=== PATIENT | male | born 1950 | race Caucasian/White ===

== ENCOUNTER 2019-04-08 21:40 | Observation (INO) | payer MEDICARE, BC, SELFPAY ==
[2019-04-08 21:48] VITALS: BP 142/79; PULSE 78; RESP 14; TEMP 37.1; O2SAT 99
--- NOTE | 2019-04-08 21:53 | ED.GENADUL_ITS ---
Discharge Plan Disposition Patient Disposition: [facility] INPATIENT Condition: Serious Discharge Details Chief Complaint: PsychEval Clinical Impression: Catatonic schizophrenia Admit Date/Time: 04/09/19 12:50 Admit Provider: Chas Aviles Attending Provider: Chas Aviles Primary Care Provider: Michelle Corral ED Provider: Liam Leyva Discharge Data Discharge Date/Time-TO BE ENTERED AT DEPARTURE: 04/09/19 13:16 Medical Decision Making <Ishaan Macdonald MD - Last Filed: 05/05/19 23:35> 22:00 -- 68-year-old male with history of schizophrenia, noncompliant with antipsychotic medication, with escalating delusional thoughts and paranoia since discharge from inpatient psychiatric treatment facility in February, now in catatonic state. Suspect exacerbation of schizophrenia and acute psychosis. Patient unable to consent to inpatient treatment. Plan to check screening labs. I will consult mental health crisis screener for involuntary admission. --Patient evaluated by crisis screener and agrees with need for involuntary admission. --Labs reviewed and nondiagnostic. UDS pending. Patient has been medically screened and no acute life-threatening medical condition identified. Patient deemed medically stable for transfer to psychiatric treatment facility. Awaiting QP evaluation. I had huddle with care care management and nursing regarding safety plan. 2:00 -- EE paperwork complete. Awaiting bed availability. -- Patient was wandering around ED. He was redirected back to room. CPSO initiated to monitor patient. 7:00 --patient reassessed. He is remained stable overnight, sleeping comfortably. Plan for mental health to continue to assist in involuntary placement this morning. <Liam Leyva DO - Last Filed: 04/10/19 09:19> Case was signed out to me by my colleague Dr. Ishaan Macdonald. We are pending placement options for the patient. During the patient's stay he remained notably stable, however he eventually got to the point where he was discontent with staying in his room, continually got up, ambulated around the department, and went into other patient's rooms. He was redirectable with significant assistance by multiple medical staff personnel. He was not aggressive or confrontational, just challenging secondary to his catatonic state. We did contact the nursing supervisor finish end Danielle, we discussed the best area for the patient. Currently all mental health facilities have refused transfer, and have not accepted the patient. During the meantime it is felt that the best place for the patient would be [facility] in the mental health transition beds. I contacted the hospitalist , he agrees with the assessment and plan. I have extensively reviewed the treatment plan with the patient. I have addressed all patient concerns at this time. I have also discussed the plan with the admitting physician and they agree with the current assessment and plan and have agreed to assume responsibility for the patient. All parties demonstrate verbal understanding and agreement with our assessment and plan at this time. HPI <Ishaan Macdonald MD - Last Filed: 05/05/19 23:35> General Mode of arrival: EMS . Date/Time Provider Initiated Documentation: 04/08/19 21:52 . Limitations to Documentation: altered mental status . Information obtained by: family . HPI Narrative: 68-year-old male with history of schizophrenia, here with EMS after being found by family in a barn. 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 History and review of systems limited secondary to altered mental status. Brother is here with the patient and notes that patient has not been taking his antipsychotics since being discharged from inpatient psychiatric treatment in February. Brother notes persistent and worsening paranoia, delusional thought, intermittent catatonic behavior. Symptoms severe recently. Brother notes that he has not expressed suicidality but has expressed that he feels like he is going to and that people are out to get him. Related Data Home Medications Medication Instructions Recorded Confirmed escitalopram oxalate [Lexapro] 20 mg PO DAILY 04/09/19 04/09/19 quetiapine [Seroquel] 400 mg PO HS 04/09/19 04/09/19 Allergies Allergy/AdvReac Type Severity Reaction Status Date / Time No Known Allergies Allergy Unverified 04/09/19 14:01 Review of Systems <Ishaan Macdonald MD - Last Filed: 05/05/19 23:35> Review of Systems ROS Unobtainable: Unobtainable due to mental status PFSH <Ishaan Macdonald MD - Last Filed: 05/05/19 23:35> Social History Smoking/Tobacco Use Status: Unknown Exam <Ishaan Macdonald MD - Last Filed: 05/05/19 23:35> Const General: no acute distress HENMT Head: normocephalic and atraumatic Mouth: moist mucous membranes Eyes Conjunctivae: normal conjunctivae Neck Neck: trachea midline and supple Resp Auscultation: clear to auscultation bilaterally, no rales, no rhonchi and no wheezes Cardio Jugular venous pressure: no JVD Rate: regular rate and not tachycardic Rhythm: regular rhythm GI Palpation: soft, not firm, no guarding, no masses, not rigid and nontender Neuro General: alert and awake Extrem General: no edema Psych Appearance: grossly normal Speech and Movement: catatonic Affect: blunted Attitude: avoids eye contact and refuses to answer Sign Out <Ishaan Macdonald MD - Last Filed: 05/05/19 23:35> Sign Out Data: Sign Out Comment: Awaiting involuntary placement for inpatient psychiatric treatment for acute psychosis - schizophrenia with medication noncompliance and now catatonic state Last updated by Ishaan Macdonald MD at 04/09/19 07:31
[2019-04-08 22:25] LABS: Abs Immature Grans 0.01 k/cumm (0.0-0.09); Absolute Basophil Count 0.01 k/cumm (0.0-0.2); Absolute Eosinophil Count 0.04 k/cumm (0.0-0.7); Absolute Lymphocyte Count 0.88 k/cumm (1.2-3.4); Absolute Monocyte Count 0.54 k/cumm (0.11-0.7); Absolute Neutrophil Count 4.71 k/cumm (1.2-6.7); Basophils % 0.2; Eosinophils % 0.6; HCT 38.1 % (40.0-50.0); HGB 12.9 g/dL (13.5-17.5); Immature Grans % 0.2; Lymphocytes % 14.2; Mean Corp. HGB Concentration 33.9 g/dL (32.0-36.0); Mean Corpuscular Hemoglobin 28.5 pg (27.0-33.0); Mean Corpuscular Volume 84.3 fL (80-95); Mean Platelet Volume 8.8 fL (8.0-11.0); Monocytes % 8.7; Neutrophils % 76.1; Platelet Count 216 x1000/uL (130-400); RBC 4.52 m/cumm (4.50-6.00); RBC Distribution Width 13.7 % (11.8-14.1); White Blood Cell Count 6.19 k/cumm (4.4-10.8)
[2019-04-08 22:29] LABS: ALT 29 U/L (16-63); AST 21 U/L (15-37); Albumin 3.7 g/dL (3.4-5.0); Alkaline Phosphatase 64 U/L (46-116); Anion Gap 9.5 mmol/L (3-11); BUN 22 mg/dL (7-18); CO2 24.5 mmol/L (21.0-32.0); CREATININE 1.16 mg/dL (0.70-1.30); Calcium 8.5 mg/dL (8.5-10.1); Chloride 109 mmol/L (98-107); Glucose 113 mg/dL (70-100); Potassium 3.9 mmol/L (3.5-5.1); Sodium 143 mmol/L (136-145); Total Protein 7.2 g/dL (6.4-8.2)
[2019-04-08 22:46] LABS: ETHANOL BLOOD < 3.0 mg/dL (<3)
[2019-04-08 22:51] LABS: Acetaminophen < 2 ug/mL (10-30)
[2019-04-08 22:52] LABS: Salicylate < 2.8 mg/dL (2.8-20.0)
--- NOTE | 2019-04-09 00:33 | PDOC.MHCN_ITS ---
Date of service: 04/08/19 Time of Service: 22:55 Mental Health Crisis Note Presenting Issue How did you arrive at the ED and why did you come: Patient arrived at the ED by ambulance, when state police were contacted that patient had walked into a farm house in [place]. Precipitating Factors Patient would not look at or speak to emergency clinician. Patient presents catatonic. Disposition EYE CONTACT: none APPETITE: Patients brother stated that Raul had not eaten anything today, soup was brought up to him but it was unclear if he ate the soup. SLEEP(trouble falling/staying asleep: Patients brother stated that Raul has been having trouble sleeping and has not slept lately. Plan Patient will stay at [facility] on EE status while his referral is being processed at [facility]- patient had a recent stay at [facility] and they are aware of his current state. Signature Clinician's Name/Title: Shyam Vallecillo Emergency clinician
--- NOTE | 2019-04-09 00:37 | CMSP_ITS ---
Care Management Safety Plan Per Dr. Macdonald: 68-year-old male with history of schizophrenia, noncompliant with antipsychotics medication, with escalating delusional thoughts and paranoia since discharge from inpatient psychiatric treatment facility in February, now in catatonic state. Suspect exacerbation of schizophrenia and acute psychosis. P atient unable to consent to inpatient treatment. Patient has been medically cleared and screener notified, though unable to be assessed due to catatonia. If screener deems patient meets criteria for psychiatric stabilization CM will facilitate interdepartmental huddle with [facility] screener for safety planning considerations and meet with patient to review [facility] policy and safety plan, establish individual wishes for treatment and maintain patient rights. In the interim; please note safety plan below to guide patient care while awaiting further assessment in the ED. SAFETY PLAN: 1. Will remain on precautions and in patient scrubs at this time. 2. Will remain in room under direct supervision of [facility] staff at this provided by MICHAEL, CLOTHING PATTERN PREPARER stile ripsaw operator. 3. May have paper cups, plates, finger foods as well as a cardboard spoon with which to eat meals. 4. Follow [facility] Management of the Admitted Behavioral Health Patient policy. 5. Comfort bath system only. 6. No personal belongings 7. Visitors limited to family at this time. 8. Phone contact limited to family and legal calls at this time. 9. Due to interim status, if patient wishes to leave [facility], the [facility] bible worker must be contacted to re-evaluate patient prior to patient exiting the building. If deemed appropriate for inpatient psychiatric care, safety plan will be established with patient, and care team, to adhere to patient goals, identify restrictions based on behavioral status, address nutrition, and determine allowed personal belongings, tools for hygiene and personal care. As well plan will determine level of activity including ambulation, level of supervision, visitors, and determine privileges based on level of acuity, behaviors and level of engagement by patient.
[2019-04-09 03:53] LABS: *AMPHETAMINES SCREEN URINE Negative (Negative); *BARBITURATES SCREEN URINE Negative (Negative); *BENZODIAZEPINES SCREEN URINE Negative (Negative); Cannabinoids THC Negative (Negative); Cocaine Screen,Urine Negative (Negative); METHADONE URINE SCREEN Negative (Negative); OPIATES URINE SCREEN Negative (Negative)
[2019-04-09 03:56] LABS: Tricyclic Antidepressants Negative (Negative)
--- NOTE | 2019-04-09 11:41 | CMPROGNOTE_ITS ---
Care Management Progress Note CM attempted to speak with Dr. Macdonald 04/09/19@1230. Stephany of ED reported he was currently on the phone with [facility]. CM requested Stephany notify Dr. Macdonald that Dr. Ambrocio previous recommendations for patients diagnosed with schizophrenia and found to be catatonic is to order IV or IM Ativan protocol for catatonia. CM consulted with Dr. Ambrocio 04/09/19@3492 regarding possible consult for catatonia. Dr. Ambrocio reported ativan protocol would be appropriate if deemed classic catatonia by ED MD and reported she would be open to the consult request if so utilized by the ED MD. CM discussed process of Psychiatrist consult with Dr. Leyva at 0940 and provided contact information for Dr. Ambrocio. CM reviewed previous catatonic recommendations and advocated for this course of action as previously, Dr. Ambrocio advised timing is of the essence in regard to catatonia management. CM observed medication order entered at 1130 for PO Ativan 1mg. CM connected with Dr. Ambrocio to confirm recommendation. Dr. Ambrocio confirmed recommendation was for 1 mg IV Ativan.
[2019-04-09 13:32] VITALS: BP 149/76; PULSE 64; RESP 16; TEMP 36.2; O2SAT 98
--- NOTE | 2019-04-09 13:54 | PDOC.MHCN_ITS ---
Mental Health Crisis Note Presenting Issue How did you arrive at the ED and why did you come: Gemma has been decompensating since discontinuing his antipsychotic medication. 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 The client was transported by ambulance. Gemma is currently under EE status. Precipitating Factors Clt status is still apparently catatonic with no eye contact and no response to verbal communication. Because of the unstable nature of his current state, the clt will be staying on EE status. Disposition BEHAVIOR: The clt has allowed himself to be escorted but has tried to get out of the ER unexpectedly. He was escorted back to a wheelchair without incident. EYE CONTACT: Little to no eye contact. MOOD: Gemma is catatonic. AFFECT: Affect is flat and non-responsive. APPETITE: Gemma has not been taking food when offered. He has been seen drinking water at his bedside. SLEEP(trouble falling/staying asleep: Undetermined due to catatonic state. Plan Gemma is on EE status awaiting for 2nd certification and placement [facility].
[2019-04-09 16:25] VITALS: BP 132/66; PULSE 57; RESP 20; TEMP 36.5; O2SAT 97
--- NOTE | 2019-04-09 17:00 | W.PM.HP.N ---
Date of service: 04/09/19 Time of Service: 17:00 Assessment and Plan Assessment and plan (1) Schizophrenia: Status: Chronic Assessment and plan: History of schizophrenia, not currently on medications, according to the patient's brother. He is nonverbal. Unable to give history or review of systems due to altered mental status. Apparently got up to leave the emergency department at one point. Emergency department suspected catatonia. Mental health is working with the patient on placement at a psychiatric facility. To be discussed with psychiatrist. 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 He was reportedly discharged from an inpatient psychiatric treatment facility in February, family reported that he has not taken antipsychotic medication since his discharge. Family also reported that he has had escalating delusional thoughts and paranoia since he was released from the psychiatric facility. In the emergency department his labs were essentially unremarkable, his hemoglobin and hematocrit were mildly low at 12.9 and 38.1. His urine drug screen was negative. He was evaluated by mental health. Referrals have been sent to psychiatric facilities. He is on EE status. An emergency guardian has been appointed. He was moved from the emergency department to the transition unit. At the time of his admission, he is nonverbal. He does not open his eyes to make eye contact. He did open his eyes at one point during his assessment, but does not respond to verbal stimuli. He was unable to engage in a review of systems or provide history. He does have a one-to-one patient observer. Review of Systems Review of Systems Narrative: Unobtainable due to altered mental state. [facility] Social History Smoking/Tobacco Use Status: Unknown Meds Home Medications and Allergies Home Medications Medication Instructions Recorded Confirmed Type escitalopram oxalate [Lexapro] 20 mg PO DAILY 04/09/19 04/09/19 History quetiapine [Seroquel] 400 mg PO HS 04/09/19 04/09/19 History Allergies Allergy/AdvReac Type Severity Reaction Status Date / Time No Known Allergies Allergy Unverified 04/09/19 14:01 Exam Narrative Exam Narrative: General: Elderly man, lying in bed with head elevated, holding hands together on his lap. Wearing what appears to be a wedding band. HEENT: Atraumatic, eyes closed, eyelids fluttering at times. Neck: Supple, no JVD. Cardiovascular: Heart has regular rate and rhythm, non-tachycardic, no murmur appreciated. Respiratory: Respirations appear even and unlabored, lung sounds clear to auscultation bilaterally, no rales, rhonchi or wheezing. GI: Normoactive bowel sounds x4 quadrants, abdomen soft, does not appear tender on palpation, nondistended. Extremities: No clubbing, cyanosis or edema. Pedal pulses palpable bilaterally. Results Labs Result diagrams: 04/08/19 22:10 04/08/19 22:10 Labs: Laboratory Results - last 24 hr 04/08/19 04/08/19 04/08/19 22:10 22:10 22:10 WBC 6.19 RBC 4.52 Hgb 12.9 L Hct 38.1 L MCV 84.3 MCH 28.5 MCHC 33.9 RDW 13.7 Plt Count 216 MPV 8.8 Immature Gran % 0.2 Neutrophils % 76.1 Lymphocytes % 14.2 Monocytes % 8.7 Eosinophils % 0.6 Basophils % 0.2 Absolute Neutrophils 4.71 Absolute Lymphocytes 0.88 L Absolute Monocytes 0.54 Absolute Eosinophils 0.04 Absolute Basophils 0.01 Sodium 143 Potassium 3.9 Chloride 109 H Carbon Dioxide 24.5 Anion Gap 9.5 BUN 22 H Creatinine 1.16 Estimated GFR/1.73 m2 >= 60.00 Glucose 113 H Calcium 8.5 Total Bilirubin 1.0 AST 21 ALT 29 Alkaline Phosphatase 64 Total Protein 7.2 Albumin 3.7 Salicylates < 2.8 L Urine Opiates Screen Urine Methadone Screen Acetaminophen < 2 L Ur Barbiturates Screen Ur Tricyclics Screen Ur Amphetamines Screen U Benzodiazepines Scrn Urine Cocaine Screen Ur THC Screen Ethyl Alcohol < 3.0 04/09/19 03:35 WBC RBC Hgb Hct MCV MCH MCHC RDW Plt Count MPV Immature Gran % Neutrophils % Lymphocytes % Monocytes % Eosinophils % Basophils % Absolute Neutrophils Absolute Lymphocytes Absolute Monocytes Absolute Eosinophils Absolute Basophils Sodium Potassium Chloride Carbon Dioxide Anion Gap BUN Creatinine Estimated GFR/1.73 m2 Glucose Calcium Total Bilirubin AST ALT Alkaline Phosphatase Total Protein Albumin Salicylates Urine Opiates Screen Negative Urine Methadone Screen Negative Acetaminophen Ur Barbiturates Screen Negative Ur Tricyclics Screen Negative Ur Amphetamines Screen Negative U Benzodiazepines Scrn Negative Urine Cocaine Screen Negative Ur THC Screen Negative Ethyl Alcohol Last Vital Signs Temp 36.5 C 04/09/19 16:25 Pulse 57 L 04/09/19 16:25 Resp 20 04/09/19 16:25 BP 132/66 04/09/19 16:25 Pulse Ox 97 04/09/19 16:25
--- NOTE | 2019-04-09 18:57 | CMPROGNOTE_ITS ---
- If Service Date Differs Date of service: 04/09/19 Time of Service: 18:57 Care Management Progress Note CM met with Raul in the room he does not look up his head is hung and he is starring at the floor. He does not answer any questions or look up. [facility] and [facility] coordinated a second certification with [facility] Psychiatrist José Luis Torres who approved the 2nd certification. YVETTE contacted Raul's brother Alonso to review patient history. Per his brother Raul has has two hospitalizations this year one in the spring at [facility] and then at [facility] in February. According to his brother Raul has been treated for about 25 years for mental health he has had several admissions in the past including [facility]. [facility] states that Raul lost his parents about two years ago and has struggled since around that time. [facility] reports that Raul stopped taking his medications around the spring of this year. [facility] Psychiatrist recommends placement at [facility] for the option of ECT if needed. YVETTE was contacted by Juno Jason Esq. Emergency Guardianship was awarded today by [place] Probate court to his brother Hayley Coughlin who is now the guardian. YVETTE faxed a copy to medical records and in the chart. Hayley will need to sign all consents, give permission to treat and transfer once a bed is identified. His contact number is [phone] INVOLUNTARY FOR INPATIENT PSYCHIATRIC STABILIZATION. Safety plan has been established with care team, to adhere to patient goals, identify restrictions based on behavioral status, address nutrition, and determine allowed personal belongings, tools for hygiene and personal care. Det ermine level of activity including ambulation, level of supervision, visitors, and determine privileges based on behaviors and level of engagement by pt. Huddle: ADEN Bynum, WILLY Shanks CM, Bernie, QMHP, WILLY Diaz coin machine collector supervisor. SAFETY PLAN: 1. Will remain on suicide precautions. In Paper Clothes 2. Will remain in room under direct supervision of one-on-one staff at all times provided by [employer]; MICHAEL, EDEL employment educational coord. 3. May have paper cups, plates, finger foods as well as a metal spoon with which to eat meals. [facility] staff will be responsible for accounting of utensils after meals. 4. Follow [facility] Management of the Admitted Behavioral Health Patient policy. 5. Comfort bath system only. 6. No personal belongings in the room 7. Visitors- Brother Alonso or Raul's spouse Kiersten and community stationary boiler fireman support. 8. Activities: Offer coloring crayons, coloring books or television, books or magazines. 9. Bathroom privileges in the room. 10. Phone: May speak with his brother Alonso, or his spouse Kiersten over the phone 11. Due to INVOLUNTARY status patient is to remain at [facility] until facility is identified and he is transported for psychiatric stabilization. Patient is currently Involuntarily at [facility] and seeking inpatient admission when a bed becomes available. [facility] is the recommended at the option for ECT treatment if needed. [facility] Frontline Business Quality Assurance Analyst will continue seeking placement. Please contact the Electrophysiology Tech Tactical Response Group Officer ([phone]) and [facility] Business Quality Assurance Analyst ([phone]) for any needed changes in the Safety Plan. Safety plan has been provided to interdepartmental care team. Patient will be transported by clinical nutrition manager once a bed at accepting facility is identified and confirmed.
--- NOTE | 2019-04-09 19:50 | CMSP_ITS ---
- If Service Date Differs Date of service: 04/09/19 Time of Service: 19:50 Care Management Safety Plan INVOLUNTARY FOR INPATIENT PSYCHIATRIC STABILIZATION. Safety plan has been established with care team, to adhere to patient goals, identify restrictions based on behavioral status, address nutrition, and determine allowed personal belongings, tools for hygiene and personal care. Determine level of activity including ambulation, level of supervision, v isitors, and determine privileges based on behaviors and level of engagement by pt. Huddle: ADEN Bynum, WILLY Shanks CM, Bernie, QMHP, WILLY Diaz quality control microbiology supervisor. SAFETY PLAN: 1. Will remain on suicide precautions. In Paper Clothes 2. Will remain in room under direct supervision of one-on-one staff at all times provided by [employer]; MICHAEL, EDEL barn operator. 3. May have paper cups, plates, finger foods as well as a metal spoon with which to eat meals. [facility] staff will be responsible for accounting of utensils after meals. 4. Follow [facility] Management of the Admitted Behavioral Health Patient policy. 5. Comfort bath system only. 6. No personal belongings in the room 7. Visitors- Brothjoel Gupta or Raul's spouse Kiersten and community paint mixer hand support. 8. Activities: Offer coloring crayons, coloring books or television, books or magazines. 9. Bathroom privileges in the room. 10. Phone: May speak with his brother Alonso, or his spouse Kiersten over the phone 11. Due to INVOLUNTARY status patient is to remain at [facility] until facility is identified and he is transported for psychiatric stabilization. Patient is currently Involuntarily at [facility] and seeking inpatient admission when a bed becomes available. [facility] is the recommended at the option for ECT treatment if needed. [facility] Frontline Manufacturing Inspector will continue seeking placement. Please contact the Coal Conveyor Operator Carder Blankets ([phone]) and [facility] Manufacturing Inspector ([phone]) for any needed changes in the Safety Plan. Safety plan has been provided to interdepartmental care team. Patient will be transported by vacuum system tester once a bed at accepting facility is identified and confirmed.
--- NOTE | 2019-04-09 19:50 | PDOC.CMSAFE ---
- If Service Date Differs Date of service: 04/09/19 Time of Service: 19:50 Care Management Safety Plan INVOLUNTARY FOR INPATIENT PSYCHIATRIC STABILIZATION. Safety plan has been established with care team, to adhere to patient goals, identify restrictions based on behavioral status, address nutrition, and determine allowed personal belongings, tools for hygiene and personal care. Determine level of activity including ambulation, level of supervision, visitors, and determine privileges based on behaviors and level of engagement by pt. Huddle: ADEN Bynum, WILLY Shanks CM, Bernie, QMHP, WILLY Diaz supervisor dry paste. SAFETY PLAN: 1. Will remain on suicide precautions. In Paper Clothes 2. Will remain in room under direct supervision of one-on-one staff at all times provided by [employer]; MICHAEL, EDEL charger operator helper. 3. May have paper cups, plates, finger foods as well as a metal spoon with which to eat meals. [facility] staff will be responsible for accounting of utensils after meals. 4. Follow [facility] Management of the Admitted Behavioral Health Patient policy. 5. Comfort bath system only. 6. No personal belongings in the room 7. Visitors- Brother Alonso or Raul's spouse Kiersten and community shirt turner support. 8. Activities: Offer coloring crayons, coloring books or television, books or magazines. 9. Bathroom privileges in the room. 10. Phone: May speak with his brother Alonso, or his spouse Kiersten over the phone 11. Due to INVOLUNTARY status patient is to remain at [facility] until facility is identified and he is transported for psychiatric stabilization. Patient is currently Involuntarily at [facility] and seeking inpatient admission when a bed becomes available. [facility] is the recommended at the option for ECT treatment if needed. [facility] Frontline Mortgage Counselor will continue seeking placement. Please contact the Sealing And Canceling Machine Operator Metal Work Duct Installer ([phone]) and [facility] Mortgage Counselor ([phone]) for any needed changes in the Safety Plan. Safety plan has been provided to interdepartmental care team. Patient will be transported by manager employee relations once a bed at accepting facility is identified and confirmed.
[2019-04-10 06:09] VITALS: BP 138/83; PULSE 63; RESP 16; TEMP 36.2; O2SAT 98
--- NOTE | 2019-04-10 10:11 | CMPROGNOTE_ITS ---
Care Management Progress Note 0917 Kiersten called to report Raul's brother would be coming in to complete new HIPPA. Kiersten reported that she would be bringing pajamas for Davion as well. CM reviewed expectations for safety planning of admitted mental health patients. 1000 Heather Waterman of [facility] Emergency Services arrived to screen Raul. YVETTE provided clinical information to Heather to provide to [facility] who is reviewing Raul for admission. 1015 WILLY Heart, Heather Waterman and this greeting card writer reviewed his presentation this morning. Una reported he is showing progress with response to stimuli including eye movements and watching her movements. He is eating and drinking and using the bathroom independently.
--- NOTE | 2019-04-10 11:20 | DSE_ITS ---
Date of service: 04/10/19 Time of Service: 11:20 DS: Diagnosis Discharge Diagnosis (1) Schizophrenia: Status: Chronic Discharge Plan Disposition Patient Disposition: [facility] Condition: Serious Discharge Details Chief Complaint: PsychEval Clinical Impression: Catatonic schizophrenia Reason For Visit: ACUTE PSYCHOSIS Admit Date/Time: 04/09/19 12:50 Admit Provider: Chas Aviles Attending Provider: Chas Aviles Primary Care Provider: Michelle Corral ED Provider: Liam Leyva Hospital Course Hospital Course: Raul Coughlin is a 68-year-old man with a history of schizophrenia who reportedly presented to the emergency department on 04/08/19 via EMS after being 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 He was reportedly discharged from an inpatient psychiatric treatment facility in February, family reported that he has not taken antipsychotic medication since his discharge. Family also reported that he has had escalating delusional thoughts and paranoia since he was released from the psychiatric facility. In the emergency department his labs were essentially unremarkable, his hemoglobin and hematocrit were mildly low at 12.9 and 38.1. His urine drug screen was negative. It is unclear whether he has any other medical conditions as there is no record in the chart and he is not able to engage in providing a history due to his mental state. He was evaluated by mental health. He was admitted to the transition unit on EE status while mental health worked on placement at a psychiatric facility. While he has been at [facility], he has been minimally responsive, but changing positions and eating and drinking. He is awake but not speaking or making eye contact. There was initially concern for catatonia, however, his case was discussed with Dr. Ambrocio, psychiatrist, who did not feel that he was catatonic and did not recommend an ativan challenge. Dr. Ambrocio agreed with pursuing placement at a psychiatric hospital. He was medically cleared. Mental health sent referrals and he has been accepted at [facility]. He will be transferred by ambulance. Home Meds and New Rx's Prescriptions: Continued quetiapine [Seroquel] 200 mg Tablet 400 mg PO HS RF: 0 escitalopram oxalate [Lexapro] 20 mg Tablet 20 mg PO DAILY RF: 0 Discharge Instructions Instructions: Schizophrenia (DC) Activity:: Activity as Tolerated Equipment/Supplies:: No Equipment Needed Diet:: As Tolerated Discharge Orders Discharge Orders: Discharge Order (Routine); Ordered 04/10/19 Ordered By: Lavinia Hernandez DS: Summary Status at Discharge Functional status at discharge: independent ambulation Overall status at discharge: patient is not back to baseline Mental Status: other (unable to assess) Speech and Movement: other (not speaking) Mood: other (unable to assess) Affect: other (flat affect) Exam Narrative Exam Narrative: General: Elderly man, sitting at edge of bed, eating breakfast, in NAD. HEENT: Atraumatic, makes no eye contact, looks down during visit. Neck: Supple, no JVD. Cardiovascular: Heart has regular rate and rhythm, non-tachycardic, no murmur appreciated. Respiratory: Respirations appear even and unlabored, lung sounds clear to auscultation bilaterally, no rales, rhonchi or wheezing. GI: Normoactive bowel sounds x4 quadrants, abdomen soft, does not appear tender on palpation, nondistended. Extremities: No clubbing, cyanosis or edema. Pedal pulses palpable bilaterally. Psych Mental Status: other (unable to assess) Speech and Movement: other (not speaking) Mood: other (unable to assess) Affect: other (flat affect) DS: Data Vitals/I&O Vitals and I&O: Vital Signs Temperature 36.2 C L 04/10/19 06:09 Temperature Source Tympanic 04/10/19 06:09 Pulse 63 04/10/19 06:09 Pulse Rhythm Irregular 04/09/19 20:48 Respiratory Rate 16 04/10/19 06:09 Respiratory Effort Non-Labored 04/09/19 20:48 Respiratory Depth Normal 04/09/19 20:48 Respiratory Pattern Normal 04/09/19 20:48 Blood Pressure 138/83 04/10/19 06:09 Blood Pressure Position Supine 04/08/19 21:48 Pulse Oximetry 98 04/10/19 06:09 Oxygen Delivery Method Room Air 04/10/19 06:09 Oxygen Flow Rate 0 04/10/19 06:09 Pain Level 0 04/08/19 21:48 Comment 04/10/19 06:09 Intake & Output 04/09/19 04/09/19 04/10/19 11:59 23:59 11:59 Intake Total 400 / 400 Balance 400 / 400 Weight 77.111 kg Intake: Oral 400 / 400 Other: Comment pt noted to get oob at approximately 0550 and ambulated to bathroom; urine not assessed PFSH Medical History (Updated 04/10/19 @ 11:21 by Lavinia Hernandez NP) Schizophrenia (Chronic) Social History Smoking/Tobacco Use Status: Unknown
--- NOTE | 2019-04-10 12:01 | W.PSYCHCONSU ---
Date of service: 04/10/19 Time of Service: 08:30 History of Present Illness Narrative: Brief consulation note - not full psychiatric evaluation. Not a billable psychiatric consultation. I was asked by Dr. Aviles to see Raul Coughlin for my opinion as to whether he appeared catatonic and in need of lorazepam challenge to treat catatonia. Raul has a long-standing history of schizophrenia and reportedly has not been taking his medication since discharge in February from inpatient psychiatric hospitalization. He was found in a barn and brought to [facility] ED where medical work up was negative except for mention of catatonia and where he had [facility] Crisis screening and decision to re-hospitalize for psychiatric treatment. He was moved to the transition unit pending transfer to appropriate psychiatric case. His lack of speech and lack of response to clinicians trying to work with him raised concern for catatonia. I saw Raul sitting on the side of the bed where he had been eating breakfast. He was slightly slumped, hands in his lap, chin lowered nearly to chest, eyes open. He made minimal movement when I approached him and introduced myself, however, I noted his eyebrows moving more and throat muscles becoming more active. His movements became slightly more evident when i discussed the possibility of catatonia and that we wonder if ativan might help him. He appeared more anxious. He would not lift his head or nod or shake as requested to demonstrate his hearing me. He did at one point smoothly lift his head, reach over to his cup, and take a drink, and then retreated back to closed position. Then at the end of the visit he slowly lay back on the bed pulling the sheet over him. He did not show any acknowledgement when I pulled the blanket up to cover his to the shoulders. He demonstrated no non-purposeful movements, echopraxia or echolalia, waxy flexibility, or grimacing (eyebrow movements and throat movements seemed directly related to my interaction in which he was actively withholding speech), agitation, catalepsy or stupor. He does exhibit mutism and negativism, but is not refusing to eat. Staff reports that they saw him get up easily and walk to the toilet to urinate, he also got water and drank, and they saw him eat breakfast. Yesterday when he got to the floor he eagerly drank water and ate a sandwich, but later threw water from a refill on the floor. He reportedly did not accept the PO ativan offered to him in the ED. Assessment and Plan Assessment and plan (1) Schizophrenia: Status: Chronic Assessment and plan: Impression: - Raul Coughlin is a 68 year old male who appears to be experiencing an acute psychotic episode but does not at the moment of my seeing him appear catatonic. He must have 3 symptoms of catatonia to meet diagnostic criteria and he had only two symptoms: mutism and negativism. This doens't mean that he didn't meet criteria for catatonia in the ED or that he won't meet the criteria during this stay in the transition unit. At the moment I do NOT recommend giving him IV lorazepam to treat catatonia, but only if he wishes as PO, and I would encourage him to try it. If he stops demonstrating caring for himself through eating, drinking, and toileting, and or appears more stiff in muscles, or demonstrates more active symptoms of catatonia, then medically it may be indicated to treat with IV lorazepam. Continue 1:1 observation and continue seeking psychiatric placement. [facility] Social History Smoking/Tobacco Use Status: Unknown Results Last Vital Signs Temp 36.2 C L 04/10/19 06:09 Pulse 63 04/10/19 06:09 Resp 16 04/10/19 06:09 BP 138/83 04/10/19 06:09 Pulse Ox 98 04/10/19 06:09 Labs Result diagrams: 04/08/19 22:10 04/08/19 22:10
--- NOTE | 2019-04-10 12:24 | PDOC.CMDIS ---
LACE Index Scoring Tool - Questions: Length of Stay (in days): 1 Acuity (Admit via E.D.?): Yes E.D. Visits: 1 - Answers: Total Score: 5 Risk of Readmission: Low Risk Care Management Discharge Reason for Hospitalization: Acute Psychosis Discharge Plan: [facility] Psychiatric Unit Patient/Family Education Needs: Review of transfer considerations including EE status and Transportation policy. Temporary Guardianship paperwork scanned into chart, HIPPA completed by Guardian. Services Needed at Discharge: Transportation ([facility] unavailable; Roading Engineer supported transport coordinated through [facility] Dept) - MH Services (Omit if N/A) Current MH Services: Psychiatric Inp ([facility] Medical)
--- NOTE | 2019-04-10 13:54 | NUR.NOTE ---
Nursing Note: 1250: called [facility] and spoke with charge nurse, Nori. explained to Nori what had occurred when RN attempted to discharge pt with . Nori states pt has been accepted to [facility] and bed will be held until he arrives. this scribe reports to Nori that pt will be transported via ambulance this afternoon.
[2019-04-10 16:04] VITALS: BP 136/75; PULSE 60; RESP 16; TEMP 37.1; O2SAT 97
--- NOTE | 2019-04-16 16:41 | PDOC.MHCN_ITS ---
Date of service: 04/10/19 Time of Service: 10:42 Mental Health Crisis Note Presenting Issue How did you arrive at the ED and why did you come: Patient is on an Emergency Examination status and awaiting placement in a psychiatric facility. Precipitating Factors Impossible to assess as the patient is not responding verbally. Disposition BEHAVIOR: Patient presented as if he were sleeping. EYE CONTACT: None MOOD: Unknown to this clinician. AFFECT: Patient appeared to be sleeping. APPETITE: Patient did eat breakfast this morning. SLEEP(trouble falling/staying asleep: Patient appeared to be sleeping when this clinician attempted to have a conversation and complete as assessment. Plan Patient went to the [facility] for admission into their psychiatric unit and he will be transported by ambulance.
== END 2019-04-10 17:35 ==
LOC: ER 04-09 13:07 → MS 04-09 13:25
PROVIDERS: Student in an Organized Health Care Education/Training Program; Admitting Provider Internal Medicine; Emergency Provider Student in an Organized Health Care Education/Training Program; PCP Nurse Practitioner Family; Visit Provider Internal Medicine
DX: F20.89 Other schizophrenia (principal); Z91.14 Patient's other noncompliance with medication regimen
CPT/HCPCS: 36415; 80053; 80307; 99222; 99239; 99285; NC; 80320; 80329; 85025; 99217; 99220; 99284; G0378

== ENCOUNTER 2024-06-02 19:38 | Outpatient (REF) | payer MEDICARE, BC, SELFPAY ==
[2024-06-02 21:36] LABS: HCT 38.8 % (40.0-50.0); HGB 12.7 g/dL (13.5-17.5); MCH 28.9 pg (27.0-33.0); MCHC 32.7 % (32.0-36.0); MCV 88 fL (80-95); MPV 9.7 fL (8.0-11.0); Platelet Count 173 10^3/uL (130-400); RDW 14.2 % (11.8-14.1); RDW-SD 45.7 fL; WBC 5.78 10^3/uL (4.4-10.8)
[2024-06-02 21:56] LABS: ALT 33 U/L (16-63); AST 24 U/L (15-37); Albumin 3.5 g/dL (3.4-5.0); Alkaline Phosphatase 63 U/L (46-116); Anion Gap 3.9 mmol/L (3-11); BUN 26 mg/dL (7-18); Bilirubin, Total 0.64 mg/dL (0.2-1.0); CO2 31.1 mmol/L (21.0-32.0); CREATININE 1.2 mg/dL (0.70-1.30); Calcium 8.9 mg/dL (8.5-10.1); Chloride 102 mmol/L (98-107); Estimated GFR 63.46 (mL/min/1.73m2); Glucose 91 mg/dL (74-106); Sodium 137 mmol/L (136-145); TSH 0.95 uIU/mL (0.36-3.74)
== END 2024-06-02 19:39 | disposition home or self-care (01) ==
LOC: NCHCN 19:38
PROVIDERS: PCP Nurse Practitioner Family; Visit Provider Nurse Practitioner Family
DX: D64.9 Anemia, unspecified (principal); I48.92 Unspecified atrial flutter
CPT/HCPCS: 80053; 85027; 84443

== ENCOUNTER 2024-06-06 10:54 | Outpatient (REF) | payer MEDICARE, BC, SELFPAY ==
[2024-06-10 13:39] LABS: Helicobacter pylori Ag, Feces Negative (Negative)
== END 2024-06-06 10:55 | disposition home or self-care (01) ==
LOC: NCHCN 10:54
PROVIDERS: PCP Nurse Practitioner Family; Visit Provider Nurse Practitioner Family
DX: K29.70 Gastritis, unspecified, without bleeding (principal)
CPT/HCPCS: 87338